=== PATIENT | male | born 1975 ===

== ENCOUNTER → 2024-02-05 | Outpatient (CLI) | payer OTHER ==
[~2024-02-05] MED LIST: CYCL10 PO; HYDACE5 PO; IBUP600 PO; NAPR500 PO
[2024-02-05 17:31] LABS: Albumin, Blood 4.2 g/dL (3.4-5.0); Albumin/Globulin Ratio 1.1 (0.8-1.8); Bilirubin, Total 0.7 mg/dL (0.1-1.0); Creatinine, Blood 1.05 mg/dL (0.60-1.20); Globulin, Blood 3.8 g/dL (2.2-4.0)
== END | disposition home or self-care (01) ==
LOC: LAB 17:07 → LAB SHORT 17:07
PROVIDERS: Physician Assistant Medical
DX: B35.1 Tinea unguium (principal); R21 Rash and other nonspecific skin eruption
CPT/HCPCS: 80053; 87210